=== PATIENT | female | born 1945 | race Caucasian/White ===

== ENCOUNTER → 2017-09-07 16:38 | Outpatient (CLI) | payer MEDICARE, OTHER, SELFPAY ==
--- NOTE | 2017-09-07 16:52 | BI_ITS ---
MAMMOGRAPHY - BILATERAL SCREENING REASON FOR EXAM: Female, 72 years old. Routine annual screening examination. PERTINENT HISTORY: Non-contributory. Chronic right nipple inversion. TECHNIQUE: Digital bilateral breast luz (3D mammographic acquisition) in the CC and MLO projections. 2-D mediolateral oblique (MLO) and craniocaudad (CC) views of both breasts were obtained. CAD: Full Field Digital Mammography with Computer Added Detection was performed. COMPARISON: Comparison is made with prior study dated July 28, 2016 and December 01, 2014. FINDINGS: Breast Composition: There are scattered areas of fibroglandular density. There are no dominant masses or suspicious calcifications. No other significant abnormalities are identified. There has been no significant change since the prior study. BI/SCREENING MAMM (CAD), BILAT IMPRESSION: Stable bilateral screening mammogram. Yearly follow-up mammogram recommended. (A) ASSESSMENT CATEGORY: BIRADS Category 1: Negative. A letter regarding these results will be sent to the patient by the facility within 30 days. Approximately 10% of breast cancers are not detected by mammography. A normal mammogram should not delay biopsy of a clinically suspicious abnormality. [id number] Electronically Signed: Madi Franco MD at 12:56 EDT Tel [phone], Service support ,
== END ==
DX: Z12.31 Encounter for screening mammogram for malignant neoplasm of breast (principal)
CPT/HCPCS: 77063; 77067

== ENCOUNTER 2017-11-16 09:59 | Emergency (ER) | payer OTHER, MEDICARE, SELFPAY ==
[2017-11-16 10:01] VITALS: BP 175/83; PULSE 77; RESP 16; TEMP 36.2; O2SAT 94; BMI 30.1
--- NOTE | 2017-11-16 10:18 | ED.RN ---
PT FELL LAST WEEK ON STOMACH. BLACKNESS UNDER BILAT EYES. C/O KNOT AND PAIN TO LT ABD GOING INTO LOWER BACK.
--- NOTE | 2017-11-16 11:28 | ED.VISSUMM ---
- ER Visit Summary Date of Service: 11/16/17 Chief Complaint: Headache status post head trauma and fall History of Present Illness: The patient is a 72 F states she tripped at work a week ago fell struck her head on a machine. Was taken to an ER in [place] and reportedly had CAT scans which she states are negative. She is developed bruising in her forehead and around both eyes. Complaining of a headache. Also complaining of low back pain. Today she had nausea and vomiting. She denies any chest pain or abdominal pain. She denies any weakness or numbness to her upper or lower extremities. She does take aspirin but is on no other blood thinners. Physical Examination: Elderly female no acute distress. Vital signs are stable afebrile. H EENT exam pupils round reactive light extra motions are intact. She has bruising to her mid forehead and around both eyes. Extra motions are intact. No dental injury. She does have tenderness to her facial bones. C-spine is mild tenderness trachea midline. Lungs clear to auscultation bilaterally. Heart regular rhythm no murmur. Chest nontender. Abdomen soft nondistended normal bowel sounds no peritoneal signs. She is a soft tissue density in the left side of her abdomen may be a lipoma. That has been there for some time. Pelvic girdle intact. She is moving all 4 extremities. The neurovascular intact. Back her's thoracic spine is nontender she has tenderness to her lumbar spine. There is no ecchymosis or bruising her back. Neurologically she is awake alert moving all 4 extremities. No focal motor or sensory deficits. GCS of 15. Test Results: Spine plain x-rays show chronic degenerative changes. There is also a T12 compression fracture but I explained to the patient and her I do not know if that is new or old.. CT of the brain showed a forehead scalp contusion but no acute intracranial abnormality. No bleed. CT facial dense of the same contusion and soft tissue swelling but no fractures. CT C-spine showed degenerative changes but no acute process. All were read by the radiologist and reviewed by me. CBC unremarkable with a hemoglobin 11.2. Creatinine is 0.9 and normal gap. Repeat exam patient is doing well. I discussed all test results with her and her and will be discharged home. Emergency Department Course and Treatment: Patient requested something stronger than Tylenol for pain. She will be given morphine and Zofran. CAT scans, x-rays and labs will be obtained. I also discussed with the patient and she does not want to make this worker's comp. Treatment Plan: Discharge. Tylenol for pain. Follow-up with her primary care physician as needed. Disposition: Discharge Impression: Recent fall T12 compression fracture age-indeterminate Closed head injury with facial hematoma Cervical strain Low back pain secondary to contusion This note was generated with [employer] dictation software. It may contain incorrect words, spelling, and punctuation that were not noted in review of the chart prior to signing ED Disposition - Plan for ED Patient: Disposition: Home or Assisted Living Chief Complaint: Back Instructions: ED Contusion Back, ED Head Injury Closed Prescriptions: Hydrocodone Bitart/Apap 5-325 [[place] 5MG-325MG] 1 tab PO Q4H PRN PRN #20 tab PRN Reason: Pain Referrals: [facility],Out of [Primary Care Provider] - 1 Week if not improving Additional Instructions: Ice to all sore areas. Tylenol for pain. Follow-up with your doctor as needed.
--- NOTE | 2017-11-16 11:32 | ED.DCSUM_ITS ---
- ER Visit Summary Date of Service: 11/16/17 Chief Complaint: Headache status post head trauma and fall History of Present Illness: The patient is a 72 F states she tripped at work a week ago fell struck her head on a machine. Was taken to an ER in [place] and reportedly had CAT scans which she states are negative. She is developed bruising in her forehead and around both eyes. Complaining of a headache. Also complaining of low back pain. Today she had nausea and vomiting. She denies any chest pain or abdominal pain. She denies any weakness or numbness to her upper or lower extremities. She does take aspirin but is on no other blood thinners. Physical Examination: Elderly female no acute distress. Vital signs are stable afebrile. H EENT exam pupils round reactive light extra motions are intact. She has bruising to her mid forehead and around both eyes. Extra motions are intact. No dental injury. She does have tenderness to her facial bones. C- spine is mild tenderness trachea midline. Lungs clear to auscultation bilaterally. Heart regular rhythm no murmur. Chest nontender. Abdomen soft nondistended normal bowel sounds no peritoneal signs. She is a soft tissue density in the left side of her abdomen may be a lipoma. That has been there for some time. Pelvic girdle intact. She is moving all 4 extremities. The neurovascular intact. Back her's thoracic spine is nontender she has tenderness to her lumbar spine. There is no ecchymosis or bruising her back. Neurologically she is awake alert moving all 4 extremities. No focal motor or sensory deficits. GCS of 15. Test Results: Spine plain x-rays show chronic degenerative changes. There is also a T12 compression fracture but I explained to the patient and her I do not know if that is new or old.. CT of the brain showed a forehead scalp contusion but no acute intracranial abnormality. No bleed. CT facial dense of the same contusion and soft tissue swelling but no fractures. CT C-spine showed degenerative changes but no acute process. All were read by the radiologist and reviewed by me. CBC unremarkable with a hemoglobin 11.2. Creatinine is 0.9 and normal gap. Repeat exam patient is doing well. I discussed all test results with her and her and will be discharged home. Emergency Department Course and Treatment: Patient requested something stronger than Tylenol for pain. She will be given morphine and Zofran. CAT scans, x- rays and labs will be obtained. I also discussed with the patient and she does not want to make this worker's comp. Treatment Plan: Discharge. Tylenol for pain. Follow-up with her primary care physician as needed. Disposition: Discharge Impression: Recent fall T12 compression fracture age-indeterminate Closed head injury with facial hematoma Cervical strain Low back pain secondary to contusion This note was generated with [employer] dictation software. It may contain incorrect words, spelling, and punctuation that were not noted in review of the chart prior to signing ED Disposition - Plan for ED Patient: Disposition: Home or Assisted Living Chief Complaint: Back Instructions: ED Contusion Back, ED Head Injury Closed Prescriptions: Hydrocodone Bitart/Apap 5-325 [[place] 5MG-325MG] 1 tab PO Q4H PRN PRN #20 tab PRN Reason: Pain Referrals: [facility],Out of [Primary Care Provider] - 1 Week if not improving Additional Instructions: Ice to all sore areas. Tylenol for pain. Follow-up with your doctor as needed.
[2017-11-16] MEDS: Ondansetron 4 MG/2 ML Vial IV (11:49)
[2017-11-16] MEDS: Morphine 4 MG/ML Syringe IV (11:49)
[2017-11-16 12:01] LABS: Absolute Neutrophil Count 2.8 X10^3/uL (2.0-7.7); Basophil# 0.01 X10^3/uL; Basophil% 0.3 % (0-1); Eosinophil# 0.06 X10^3/uL; Eosinophils% 1.5 % (0-5); Hematocrit 34.5 % (37-47); Hemoglobin 11.2 g/dl (12.0-15.0); Lymphocyte % 17.5 % (19-41); Mean Corp Hgb Conc 32.5 g/gl (32-36); Mean Corpuscular Hgb 29.5 pg (27.0-32.0); Mean Corpuscular Volume 90.8 fL (81-99); Mean Platelet Vol. 10.9 fl (6.2-12.0); Monocyte# 0.41 X10^3/uL; Monocyte% 10.3 % (0-10); Neutrophil % 70.1 % (47-70); Platelet Count 173 K/mm3 (150-450); RBC Distribution Width CV 13.2 % (11.6-14.6); RBC Distribution Width SD 43.1 fl (35.1-43.9)
[2017-11-16 12:06] LABS: POSITIVE COUNT NO; POSITIVE DIFFERENTIAL NO; POSITIVE MORPHOLOGY NO
[2017-11-16 12:14] LABS: Anion Gap 10 (5-15); BUN 26 mg/dL (7-18); BUN/Creat Ratio 26.5 RATIO (10-20); Calcium,Total 9.8 mg/dL (8.5-10.1); Chloride 101 mmol/L (98-107); Creatinine, Serum 0.98 mg/dL (0.55-1.02); EST Glomerular Filtration Rate 59 mL/min (>60); Est Glom Filt Rate - Afr Amer 71 mL/min (>60); Estimated Creatinine Clearance 41.66 ml/min; Glucose 85 mg/dL (74-106); Potassium 3.5 mmol/L (3.5-5.1); Sodium Level 140 mmol/L (136-145)
--- NOTE | 2017-11-16 14:31 | DCINST.ED_ITS ---
ED Disposition - Plan for ED Patient: Disposition: Home or Assisted Living Chief Complaint: Back Instructions: ED Contusion Back, ED Head Injury Closed Prescriptions: Hydrocodone Bitart/Apap 5-325 [[place] 5MG-325MG] 1 tab PO Q4H PRN PRN #20 tab PRN Reason: Pain Referrals: [facility],Out of [Primary Care Provider] - 1 Week if not improving Additional Instructions: Ice to all sore areas. Tylenol for pain. Follow-up with your doctor as needed.
[2017-11-16 14:43] VITALS: BP 124/77; PULSE 61; RESP 15; O2SAT 98
== END 2017-11-16 14:44 | disposition home or self-care (01) ==
PROVIDERS: Emergency Provider Emergency Medicine
DX: S00.83XA Contusion of other part of head, initial encounter (principal); S00.12XA Contusion of left eyelid and periocular area, initial encounter; S00.11XA Contusion of right eyelid and periocular area, initial encounter; S30.0XXA Contusion of lower back and pelvis, initial encounter; S16.1XXA Strain of muscle, fascia and tendon at neck level, initial encounter; W01.0XXA Fall on same level from slipping, tripping and stumbling without subsequent striking against object, initial encounter; Y93.9 Activity, unspecified; Y92.9 Unspecified place or not applicable; Y99.0 Civilian activity done for income or pay; M48.54XA Collapsed vertebra, not elsewhere classified, thoracic region, initial encounter for fracture; E11.9 Type 2 diabetes mellitus without complications; I10 Essential (primary) hypertension; E78.00 Pure hypercholesterolemia, unspecified; Z79.82 Long term (current) use of aspirin; Z79.84 Long term (current) use of oral hypoglycemic drugs; Z79.899 Other long term (current) drug therapy
CPT/HCPCS: 70450; 70486; 72100; 72125; 80048; 85025; 96374; 96375; 99283; A4216; J2405

== ENCOUNTER → 2018-12-20 17:20 | Outpatient (CLI) | payer MEDICARE, OTHER, SELFPAY ==
--- NOTE | 2018-12-20 17:16 | BI_ITS ---
MAMMOGRAPHY - BILATERAL SCREENING REASON FOR EXAM: Female, 73 years old. Routine annual screening examination. PERTINENT HISTORY: Non-contributory. Chronic inversion of the right nipple. TECHNIQUE: Digital bilateral breast rebeca (3D mammographic acquisition) in the CC and MLO projections. 2-D mediolateral oblique (MLO) and craniocaudad (CC) views of both breasts were obtained. CAD: Full Field Digital Mammography with Computer Added Detection was performed. COMPARISON: Comparison is made with prior study dated September 07, 2017 and July 28, 2016. FINDINGS: Breast Composition: There are scattered areas of fibroglandular density. There are no dominant masses or suspicious calcifications. Stable, small benign-appearing bilateral axillary lymph nodes. No other significant abnormalities are identified. There has been no significant change since the prior study. BI/SCREEN MAMM (CAD) W/REBECA BILAT IMPRESSION: Stable bilateral screening mammogram. Yearly follow-up mammogram recommended. (A) ASSESSMENT CATEGORY: BIRADS Category 2: Benign. A letter regarding these results will be sent to the patient by the facility within 30 days. Approximately 10% of breast cancers are not detected by mammography. A normal mammogram should not delay biopsy of a clinically suspicious abnormality. [id number] Electronically Signed: Madi Franco, at 8:48 EDT , Service support ,
== END ==
DX: Z12.31 Encounter for screening mammogram for malignant neoplasm of breast (principal)
CPT/HCPCS: 77063; 77067

== ENCOUNTER 2019-04-11 05:09 | Emergency (ER) | payer MEDICARE, OTHER, SELFPAY ==
[2019-04-11 05:11] VITALS: BP 177/74; PULSE 79; RESP 18; TEMP 36.5; O2SAT 98; BMI 27.3
--- NOTE | 2019-04-11 05:37 | RAD_ITS ---
STUDY: X-RAY - LUMBAR SPINE REASON FOR EXAM: Female, 73 years old. Right-sided low back pain. TECHNIQUE: 3 view(s) of the lumbar spine were obtained. COMPARISON: 11/16/2017 lumbar spine radiographs. FINDINGS: No apparent acute fracture or aggressive osseous lesions. Mild right scoliosis centered at L3, unchanged. Interval progression of chronic compression of the T12 vertebral body, now with severe height loss. Mild chronic depression of the superior endplate of L3 similar to previous. Prominent disc degeneration at L1-2. Prominent facet degeneration the lower lumbar spine. No acute osseous abnormality. Abdominal surgical clips and dense calcific atherosclerosis. RAD/Lumbar Spine 2 or 3 Views IMPRESSION: No acute findings. Chronic fractures and prominent degenerative changes as above. Electronically Signed: Librado Puentes, at 6:16 EST Tel , Service support ,
--- NOTE | 2019-04-11 05:38 | ED.DCSUM_ITS ---
History of Present Illness Chief Complaint: Flank Pain Narrative: Patient is a 73-year-old female who presents with back pain. This is been present for about 2 weeks. She complains of right lower back pain which is worse with certain movements ambulation or palpation. She thought her symptoms were getting better but when she got up to go to work this morning her symptoms were worse. She has been taking Tylenol with little relief. No associated symptoms. She denies fevers nausea vomiting diarrhea. No abdominal pain. No numbness tingling weakness or radiation to the legs. No urinary retention. No fecal incontinence. No prior back surgeries. She denies any urinary symptoms such as dysuria, frequency, urgency. No history of injury or trauma. Past Medical History - Allergies and Home Meds Allergies/Adverse Reactions: Allergies levofloxacin [From Levaquin] Allergy (Verified 04/11/19 05:11) Other Primary Care Physician: Gertrude Bliss,Out of [Primary Care Provider] - Past Medical History: - - Diabetes, hypertension, hyperlipidemia Surgical History: cholecystectomy Smoking Status: Never smoker Review of Systems All systems negative except as indicated General: Denies: Fever Cardiovascular: Denies: Chest pain Respiratory: Denies: Dyspnea Gastrointestinal: Denies: Abdominal pain, Nausea, Vomiting, Diarrhea Genitourinary: Denies: Dysuria, Frequency Musculoskeletal: Reports: Back pain Skin: Denies: Rash Neurological: Denies: Headache Hematologic: Denies: Easy bruising Allergy: Denies: Uticaria Physical Exam Vital Signs/Narrative: Vital Signs Temp Pulse Resp BP Pulse Ox 04/11/19 05:11 97.7 F L 79 18 177/74 H 98 Inital Vital Signs reviewed: Yes General: Well nourished, Well developed Head: Normocephalic Eyes: EOMI ENT: Moist mucous membranes Neck: Supple Cardiovascular: Regular rate, Regular rhythm Respiratory: No distress, CTA bilaterally Abdomen: Soft, Nontender, Nondistended Back: - - Patient has right-sided paraspinal tenderness of the lumbar and lower thoracic back she has no midline tenderness Extremities: Nontender, - - Normal strength and sensation of the lower extremities with normal sensation to light touch, brisk capillary refill, negative straight leg raise Skin: Normal color Neurological: Alert Psychological: Normal affect Diagnostic/Tx/Re-eval Impressions Lumbar Spine X-Ray 04/11/19 05:37 IMPRESSION: No acute findings. Chronic fractures and prominent degenerative changes as above. Electronically Signed: Librado Puentes, at 6:16 EST Tel , Service support , 04/11/19 05:37 Lumbar Spine 2 or 3 Views [RAD] Stat - Medical Decision Making Patient's pain seems to be musculoskeletal in nature. It is easily reproducible. She was noted to have an antalgic gait. She was given tramadol for pain. X-rays as above notable for T12 and L3 compression fractures. T12 compression fracture has advanced from previous. Patient was advised on supportive care such as physical therapy. She has a back brace already at home which I encouraged her to use. She was also given a referral to orthopedics for follow-up. She understands to return for new or worsening symptoms. Patient agreeable to this plan and was discharged home. ED Disposition - Plan for ED Patient: Disposition: Home or Assisted Living Diagnosis: Compression fracture Instructions: FRACTURE, Vertebral Compression Prescriptions: traMADol [Ultram] 50 mg PO Q6H PRN 3 Days #12 tab PRN Reason: Pain Prescription Printed Referrals: [facility] Doctor,Out of [Primary Care Provider] -
[2019-04-11] MEDS: traMADol 50 MG Tablet PO (05:43)
[2019-04-11 06:51] VITALS: BP 145/70; PULSE 72; RESP 16; O2SAT 97
== END 2019-04-11 06:51 | disposition home or self-care (01) ==
PROVIDERS: Emergency Provider Emergency Medicine
DX: M48.55XA Collapsed vertebra, not elsewhere classified, thoracolumbar region, initial encounter for fracture (principal); I10 Essential (primary) hypertension; E78.5 Hyperlipidemia, unspecified; E11.9 Type 2 diabetes mellitus without complications; Z79.82 Long term (current) use of aspirin; Z79.84 Long term (current) use of oral hypoglycemic drugs
CPT/HCPCS: 72100; 99283

== ENCOUNTER → 2020-06-30 14:11 | Outpatient (CLI) | payer MEDICARE, OTHER, SELFPAY ==
--- NOTE | 2020-06-30 14:19 | BI_ITS ---
MAMMOGRAPHY - BILATERAL DIAGNOSTIC REASON FOR EXAM: Female, 75 years old. Medial left breast pain. Chronic inversion of the right outer lower complex. PERTINENT HISTORY: Non-contributory. TECHNIQUE: Digital bilateral breast luz (3D mammographic acquisition) in the CC and MLO projections. 2-D mediolateral oblique (MLO) and craniocaudad (CC) views of both breasts were obtained. CAD: Full Field Digital Mammography with Computer Added Detection was performed. COMPARISON: Comparison is made with prior study 12/20/2018 and 09/07/2017. FINDINGS: Breast Composition: There are scattered areas of fibroglandular density. There are no dominant masses or suspicious calcifications. Stable benign-appearing bilateral axillary nodes. No other significant abnormalities are identified. There has been no significant change since the prior study. BI/DIAG MAMM W/CAD, BILAT IMPRESSION: Stable bilateral diagnostic mammogram. With the patient''s history of medial left breast pain, correlation with ultrasound is recommended. ASSESSMENT CATEGORY: BIRADS Category 0: Incomplete. Need additional imaging evaluation. A letter regarding these results will be sent to the patient by the facility within 30 days. Approximately 10% of breast cancers are not detected by mammography. A normal mammogram should not delay biopsy of a clinically suspicious abnormality. Electronically Signed: Madi Franco MD at 15:00 EDT , Service support ,
--- NOTE | 2020-06-30 15:38 | US_ITS ---
STUDY: ULTRASOUND BREAST - LEFT REASON FOR EXAM: Female, 75 years old. Medial left breast pain following a fall. TECHNIQUE: Axial and longitudinal images of the LEFT breast were performed with a high resolution ultrasound transducer. # OF IMAGES: 52 COMPARISON: Comparison is made with prior mammogram dated 06/30/2020. FINDINGS: LEFT Breast: The medial aspect of the left breast was examined by ultrasound. No sonographic abnormality is seen. US/Breast Limited Unilateral IMPRESSION: No sonographic abnormality seen. ASSESSMENT CATEGORY: BIRADS Category 1: Negative. A letter regarding these results will be sent to the patient by the facility within 30 days. Electronically Signed: Madi Franco MD at 10:46 EDT , Service support ,
== END ==
DX: N64.59 Other signs and symptoms in breast (principal)
CPT/HCPCS: 76642; 77062; 77066; G0279

== ENCOUNTER → 2021-07-01 17:15 | Outpatient (CLI) | payer MEDICARE, OTHER, SELFPAY ==
--- NOTE | 2021-07-01 16:39 | BI_ITS ---
MAMMOGRAPHY - BILATERAL SCREENING REASON FOR EXAM: Female, 76 years old. Routine annual screening examination. PERTINENT HISTORY: Non-contributory. Occasional medial left breast pain. Chronic inversion of the right nipple. TECHNIQUE: Digital bilateral breast rebeca (3D mammographic acquisition) in the CC and MLO projections. 2-D mediolateral oblique (MLO) and craniocaudad (CC) views of both breasts were obtained. CAD: Full Field Digital Mammography with Computer Added Detection was performed. COMPARISON: Comparison is made with prior study dated 06/30/2020 and 12/20/2018. FINDINGS: Breast Composition: There are scattered areas of fibroglandular density. There is a 4.7 mm x 9.2 mm nodule in the upper lateral aspect of the left breast. Correlation with ultrasound is recommended. No other significant abnormalities are identified. BI/SCRN MAMM (CAD)W/REBECA BILAT IMPRESSION: 4.7 mm x 9.2 mm nodular density in the upper lateral aspect of the left breast. Correlation with ultrasound is recommended. ASSESSMENT CATEGORY: BIRADS Category 0: Incomplete. Need additional imaging evaluation. A letter regarding these results will be sent to the patient by the facility within 30 days. Approximately 10% of breast cancers are not detected by mammography. A normal mammogram should not delay biopsy of a clinically suspicious abnormality. [id number] Electronically Signed: Madi Franco MD at 7:57 EDT ,
== END ==
DX: Z12.31 Encounter for screening mammogram for malignant neoplasm of breast (principal)
CPT/HCPCS: 77063; 77067

== ENCOUNTER → 2021-07-07 14:18 | Outpatient (CLI) | payer MEDICARE, OTHER, SELFPAY ==
--- NOTE | 2021-07-07 14:24 | BI_ITS ---
MAMMOGRAPHY - UNILATERAL DIAGNOSTIC: LEFT BREAST REASON FOR EXAM: Female, 76 years old. ABN MAMM LEFT BREAST PERTINENT HISTORY: Non-contributory. TECHNIQUE: Digital examination. Mediolateral oblique (MLO) and craniocaudad (CC) views of the breast were obtained. CAD: CAD was not performed on this study. COMPARISON: 07/01/2021 FINDINGS: Breast Composition: The breasts are heterogeneously dense, which may obscure small masses. Focal compression views do not confirm mass in the upper outer quadrant left breast most consistent with normal breast parenchyma. No other significant abnormalities are identified. BI/DIAG MAMM W/CAD, UNILAT IMPRESSION: Stable unilateral diagnostic mammogram. ASSESSMENT CATEGORY: BIRADS Category 1: Negative. A letter regarding these results will be sent to the patient by the facility within 30 days. FOLLOW-UP RECOMMENDATION: Yearly follow-up mammogram recommended. (A) Approximately 10% of breast cancers are not detected by mammography. A normal mammogram should not delay biopsy of a clinically suspicious abnormality. Electronically Signed: Kirby Spain MD at 14:58 EDT ,
== END ==
DX: R92.8 Other abnormal and inconclusive findings on diagnostic imaging of breast (principal)
CPT/HCPCS: 77065

== ENCOUNTER 2022-09-27 05:14 | Emergency (ER) | payer MEDICARE, OTHER, SELFPAY ==
[2022-09-27 05:15] VITALS: BP 182/76; PULSE 77; RESP 16; TEMP 35.9; O2SAT 96; BMI 36.3
--- NOTE | 2022-09-27 05:32 | RAD_ITS ---
INDICATION: pain, fall EXAMINATION/TECHNIQUE: X-RAY - RIGHT XR Hip Unilateral with Pelvis when performed; 2-3 Views COMPARISON: None. FINDINGS: Single frontal view of the pelvis. 2 views of the right hip. BONES: Normal anatomic alignment without evidence of fracture or subluxation. No concerning bony lesion or abnormal sclerosis to suggest lesion. JOINTS: No significant degenerative change. SOFT TISSUES: Dense atherosclerotic vascular calcifications. RAD/HIP, UNI W/ Pelvis 2-3 Views IMPRESSION: No acute osseous abnormality of the pelvis or right hip. Electronically Signed: Sameer Light MD at 6:29 EDT ,
--- NOTE | 2022-09-27 06:06 | ED.VIS.LOWEX ---
HPI History of Present Illness Chief Complaint: Lower Extremity Injury Informant: patient Narrative Narrative: Patient complains of right hip pain. Patient states that on Monday she was standing up and ended up falling. She states she lifted her left leg to put her pants on. When she did this her right leg just kind of gave out on her and she landed on the ground on her buttock. She has been able to get up and move since but she has had pain in that area on the right hip/buttock area ever since. She was able to go to work yesterday. She was getting ready for work today but it was just bothering her so she thought she had to have it checked. She has no numbness tingling distally. There is no radiation. It hurts kind of in the right SI joint buttock in the greater trochanteric region. She is not on any blood thinners other than baby aspirin. No hematuria or blood in the stool. No difficulty urinating or moving the bowels. No weakness. She has had compression fractures of her back but is not hurting up in the back at this time. She states it is all in the right hip and buttock area. [facility] Medical History (Updated 09/27/22 @ 06:[address] Shayan Bernabe MD) Back pain Diabetes HTN (hypertension) Migraines Home Medications alendronate 70 mg tablet 70 mg PO QWEEK 11/16/17 [History Last Taken Unknown] aspirin 81 mg tablet,delayed release 81 mg PO DAILY 11/16/17 [History Last Taken Unknown] atenolol 25 mg tablet 50 mg PO BID 11/16/17 [History Last Taken Unknown] metformin 500 mg tablet,extended release 24 hr 1,000 mg PO DAILY 11/16/17 [History Last Taken Unknown] rosuvastatin 20 mg tablet 20 mg PO DAILY 11/16/17 [History Last Taken Unknown] sulfasalazine 500 mg tablet 500 mg PO 4X/DAY 11/16/17 [History Last Taken Unknown] biotin 1,000 mcg chewable tablet 1,000 mcg PO DAILY 09/27/22 [History Last Taken Unknown] calcium carbonate 600 mg-vitamin D3 5 mcg (200 unit) capsule (Calcium 600 + D(3)) 1 cap PO DAILY 09/27/22 [History Last Taken Unknown] chlorthalidone 25 mg tablet 1 mg PO DAILY 09/27/22 [History Last Taken Unknown] cholecalciferol (vitamin D3) 25 mcg (1,000 unit) capsule (Vitamin D3) 25 mcg PO DAILY 09/27/22 [History Last Taken Unknown] diphenhydramine HCl 25 mg tablet (Benadryl Allergy) 25 mg PO QHS PRN sleep 09/27/22 [History Last Taken Unknown] nifedipine 60 mg tablet,extended release 24 hr 60 mg PO DAILY 09/27/22 [History Last Taken Unknown] potassium chloride 20 mEq tablet,extended release(part/cryst) 20 meq PO DAILY 09/27/22 [History Last Taken Unknown] sumatriptan succinate 100 mg tablet 100 mg PO Q2H PRN migraine headache 09/27/22 [History Last Taken Unknown] tramadol 50 mg tablet 50 mg PO Q6H PRN pain 3 days #12 tabs 09/27/22 [Rx Last Taken Unknown] Allergy/AdvReac Type Severity Reaction Status Date / Time levofloxacin [From Levaquin] Allergy Other Verified 09/27/22 05:15 Social History Smoking Status: Never smoker alcohol intake: never ROS ROS ED Constitutional Constitutional ED: Denies chills or fever(s) Cardiovascular Cardiovascular: Reports other Details: Her fall was mechanical and not syncopal. She never lost consciousness ; Denies chest pain or palpitations Respiratory/Chest Respiratory/Chest: Denies cough Gastrointestinal Gastrointestinal: Denies nausea or vomiting Musculoskeletal Musculoskeletal: Reports arthralgias and other Details: See history of present illness. ; Denies back pain or neck pain Integumentary Denies Abrasions or rash Neurologic Neurologic: Denies headache(s), paresthesias or weakness Hematologic/Lymphatic Hematologic/Lymphatic: Denies easy bleeding or easy bruising Allergic/Immunologic Allergic/Immunologic ED: Denies urticaria EXAM Physical Exam Narrative Exam Narrative: Patient is awake alert sitting comfortably in bed. HEENT shows no sign of trauma visible. Extraocular muscles are intact. Neck shows no tenderness or pain with motion Heart is regular without murmur. Pulses are normal distally. Lungs are clear bilaterally and breathing is easy and unlabored. Saturations are normal at 96% on room air showing no hypoxia. Abdomen soft nontender I do not feel a mass or hear a bruit. There is no spine tenderness in the cervical thoracic or lumbar area. Extremities: She does have some tenderness along the right SI joint right side buttock sciatic notch and a little bit in the right greater trochanteric area. But I do not see any bruising at this area. All the pain is lateral off midline. There is no swelling or asymmetry. Neurologic: Sensation and strength are normal distally. She can move and walk but it is sore when she moves or rotates. Most of the pain really seems to be coming more from the right buttock area. Const Vital Signs: 09/27/22 05:15 Temperature 96.7 F L Temperature Source Temporal Pulse Rate 77 Respiratory Rate 16 Blood Pressure 182/76 H Blood Pressure Mean 111 Pulse Ox 96 MDM MDM MDM Narrative Medical decision making narrative: I did review the patient's online prescribing report and there are no controlled substances at all within the last 2 years. My independent interpretation of the patient's three-view x-ray of the right hip including AP of pelvis show no acute fracture. There may be some mild arthritic changes. Final reading by radiology shows no acute osseous abnormality of the pelvis or right hip. Patient is up and moving. She states Tylenol does not work well for pain for her. Aleve works better but it still sore. We discussed that she should be very cautious taking this as it can cause gastric bleeding. I will write for a few tramadol to be used as needed. Radiography Diagnostic Testing: Clinical Impression(s) from Imaging Studies Hip/Pelvis X-Ray 09/27/22 05:32 IMPRESSION: No acute osseous abnormality of the pelvis or right hip. Electronically Signed: Sameer Light MD at 6:29 EDT , Discharge Plan Triage Chief Complaint: Lower Extremity Injury ED Provider: Shayan Bernabe Dx/Rx/DC Orders Clinical Impression: Contusion, buttock, Fall at home Instructions: ED Soft Tissue Contusion Prescriptions: New tramadol 50 mg tablet 50 mg PO Q6H PRN (Reason: pain) 3 Days Qty: 12 0RF No Action sulfasalazine 500 MG tablet 500 mg PO 4X/DAY alendronate 70 MG tablet 70 mg PO QWEEK atenolol 25 tablet 50 mg PO BID Patient Comments: aspirin 81 MG tablet,delayed release (DR/EC) 81 mg PO DAILY metformin 500 MG tablet 1,000 mg PO DAILY rosuvastatin 20 MG tablet 20 mg PO DAILY biotin 1,000 mcg tablet,chewable 1,000 mcg PO DAILY Calcium 600 + D(3) 600 mg-5 mcg (200 unit) capsule 1 cap PO DAILY chlorthalidone 25 mg tablet 1 mg PO DAILY Patient Comments: TAKE 1 TABLET BY MOUTH ONCE DAILY. DO NOT TAKE IF BLOOD PRESSURE IS LESS THAN 100/60. diphenhydramine HCl [Benadryl Allergy] 25 mg tablet 25 mg PO QHS PRN (Reason: sleep) nifedipine 60 mg tablet extended release 24hr 60 mg PO DAILY Patient Comments: TAKE 1 TABLET BY MOUTH ONCE DAILY potassium chloride 20 mEq tablet,ER particles/crystals 20 meq PO DAILY Patient Comments: TAKE 1 TABLET BY MOUTH ONCE DAILY sumatriptan succinate 100 mg tablet 100 mg PO Q2H PRN (Reason: migraine headache) Patient Comments: TAKE 1 TABLET BY MOUTH EVERY 2 HOURS NEEDED. MAX DAILY DOSE IS 200MG PER DAY cholecalciferol (vitamin D3) [Vitamin D3] 25 mcg (1,000 unit) capsule 25 mcg PO DAILY Primary Care Provider: WALDO YANES Referrals: WALDO YANES [Other] - 3-5 Days if not improving Disposition Disposition: Home, Self Care
== END 2022-09-27 06:52 | disposition home or self-care (01) ==
PROVIDERS: Emergency Provider Emergency Medicine; Visit Provider Emergency Medicine
DX: S30.0XXA Contusion of lower back and pelvis, initial encounter (principal); E11.9 Type 2 diabetes mellitus without complications; W18.39XA Other fall on same level, initial encounter; Y92.009 Unspecified place in unspecified non-institutional (private) residence as the place of occurrence of the external cause; Y93.89 Activity, other specified; Y99.8 Other external cause status; I10 Essential (primary) hypertension; Z79.82 Long term (current) use of aspirin; Z79.84 Long term (current) use of oral hypoglycemic drugs; Z79.899 Other long term (current) drug therapy
CPT/HCPCS: 73502; 99282